=== PATIENT | male | born 2005 | race African-American/Black ===

== ENCOUNTER 2024-02-14 18:54 | Emergency (ER) | payer SELFPAY ==
[~2024-02-14] VITALS: Ht 185.4 cm; Wt 80.0 kg
[2024-02-14] MEDS ORDERED: DIPHTH,PERTUSS(ACELL),TET VAC 0.5 ML SYRINGE IM ONE (20:00)
[2024-02-14 20:40] VITALS: BP 118/78
== END 2024-02-14 20:40 | disposition left against medical advice (07) ==
LOC: ED 18:54
DX: S61.211A Laceration without foreign body of left index finger without damage to nail, initial encounter (principal); W26.0XXA Contact with knife, initial encounter; Z53.21 Procedure and treatment not carried out due to patient leaving prior to being seen by health care provider
CPT/HCPCS: 90715